=== PATIENT | male | born 1985 | race Caucasian/White ===

== ENCOUNTER 2020-02-16 11:17 | Emergency (ER) | payer OTHER ==
[~2020-02-16] VITALS: Ht 195.6 cm; Wt 117.9 kg
--- OUTSIDE RECORDS SUMMARY | ~2020-02-16 | XMS | Encounter Summary ---
Demographics + + + | Address | [address] | | | [place] [address] | + + + | Home Phone | | + + + | Preferred Language | Unknown | + + + | Marital Status | Unknown | + + + | Mormon Affiliation | Unknown | + + + | Race | Unknown | + + + | Ethnic Group | Other Race | + + + Author + + + | Organization | Unknown | + + + | Address | Unknown | + + + | Phone | Unavailable | + + + Care Team Providers + +------+ + | Care In Home Tutor Name | Role | Phone | + +------+ + PCP | Unavailable | + +------+ + Encounter Details +--------+ + + + + | Date | Type | Department | Care Team | Description | +--------+ + + + + | 09/12/ | Results | | Other, Faculty | | | 2000 | Only | | [phone] | | +--------+ + + + + Social History + +-------+ +--------+------+ | Tobacco Use | Types | Packs/Day | Years | Date | | | | | Used | | + +-------+ +--------+------+ | Never Assessed | | | | | + +-------+ +--------+------+ + + + | Sex Assigned at | Date Recorded | | | | + + + | Not on file | | + + + documented as of this encounter Plan of Treatment Not on filedocumented as of this encounter Procedures + +--------+ + + + | Procedure Name | Priori | Date/Time | Associated Diagnosis | Comments | | | ty | | | | + +--------+ + + + | DERMATOPATHOLOGY(WET | Routin | 09/12/2000 | | Results for this | | [facility]) | e | | | procedure are in the | | | | | | results section. | + +--------+ + + + documented in this encounter Results DERMATOPATHOLOGY(WET [facility]) (09/12/2000) + + + + + + | Component | Value | Ref Range | Performed | Pathologist | | | | | At | Signature | + + + + + + | DERMATOPATH | SOURCE OF SPECIMEN: | | | | | OLOGY(WET | FIRST TISSUE LEVEL IV | | | | | MNT) | [address] CLINICAL | | | | | | DESCRIPTION:Excision, | | | | | | lt. posterior medial | | | | | | shoulder; dome shape, | | | | | | plaque; IDN vshamartoma. | | | | | | GROSS DESCRIPTION:Left | | | | | | posterior medial | | | | | | shoulder, lobulated | | | | | | surfaced, ellipse, 3.0 x | | | | | | 1.2 x0.7 cm, inked, | | | | | | eleven segments, two | | | | | | cassettes. MICROSCOPIC | | | | | | DESCRIPTION:There is | | | | | | papillated epidermal | | | | | | hyperplasia with an | | | | | | increased number | | | | | | ofsebaceous glands, some | | | | | | of them opening | | | | | | directly into | | | | | | infundibulums. 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 | | | | | | There is no evidence | | | | | | of nevus. | | | | | | [id number] | | | | | | Diagnostician: Declan | | | | | | Peri Nava Jr., | | | | | | RaymundoPathologistElectroni | | | | | | phillip Signed | | | | | | 09/19/2000Comment: | | | | | | SOURCE OF SPECIMEN: | | | | | | FIRST TISSUE LEVEL IV | | | | | | [id number] | | | | + + + + + + + + | Specimen | + + | | + + + + + | Narrative | Performed At | + + + | Ordered cindi Watkins | | + + + + + + + + | Performing | Address | City/State/Zipcode | Phone Number | | Organization | | | | + + + + + | [facility] | [id number] | [place] [address] | | | DERMATOPATHOLOGY | [address] | | | + + + + + documented in this encounter Visit Diagnoses Not on filedocumented in this encounter"
--- OUTSIDE RECORDS SUMMARY | ~2020-02-16 | XMS | Clinical Summary ---
Demographics + + + | Address | [address] | | | [place] [address] | + + + | Home Phone | | + + + | Preferred Language | Unknown | + + + | Marital Status | Unknown | + + + | Congregational Affiliation | Unknown | + + + | Race | Unknown | + + + | Ethnic Group | Other Race | + + + Author + + + | Organization | Unknown | + + + | Address | Unknown | + + + | Phone | Unavailable | + + + Care Team Providers + +------+ + | Care Retail Analytics Manager Name | Role | Phone | + +------+ + PCP | Unavailable | + +------+ + Source Comments [facility] is fully live on both [facility] and [facility] InPatient.[facility] Allergies Not on File Medications Not on file Active Problems Not on file Social History + +-------+ +--------+------+ | Tobacco [...] on file | | + + + Last Filed Vital Signs Not on file Plan of Treatment + + +-------+ + | Health Maintenance | Due Date | Last | Comments | | | | Done | | + + +-------+ + | Influenza (Flu) | | | | | vaccination (#1) | 0 | | | + + +-------+ + | Pneumococcal | Aged Out | | No longer eligible based on patient's age | | vaccination | | | to complete this topic | + + +-------+ + Results Not on filefrom Last 3 Months"
--- OUTSIDE RECORDS SUMMARY | 2020-02-16 11:22 | XMS ---
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 Alber has no Care Guidelines for this patient. Rupesh VISIT COUNT (12 MO.) [address] TOTAL 2 NOTE: Visits indicate total known visits. ED/C VISIT TRACKING (12 MO.) 02/16/2020 11:18 [facility] [facility] [place] TYPE: Emergency COMPLAINT: - SOB,BACK PAIN 02/14/2020 20:18 [facility] [place] TYPE: Emergency DIAGNOSES: - Contusion of right front wall of thorax, initial encounter - Urinary tract infection, site not specified - SHORTNESS OF BREATH - SHORTNESS OF BREATH OJEAN INPATIENT VISIT TRACKING (12 MO.) No inpatient visits to display in this time frame [id number]
[2020-02-16] MEDS ORDERED: DIAZEPAM5 MG PO (14:11)
== END 2020-02-16 14:55 | disposition home or self-care (01) ==
LOC: ED 11:17
DX: S30.1XXA Contusion of abdominal wall, initial encounter (principal); M62.838 Other muscle spasm; F17.200 Nicotine dependence, unspecified, uncomplicated; W22.8XXA Striking against or struck by other objects, initial encounter
CPT/HCPCS: 71260; 74177; 80053; 85025; 99284-25; J1170; J1885; J2060; J2405; Q9967

== ENCOUNTER 2021-09-26 09:53 | Emergency (ER) | payer OTHER ==
[~2021-09-26] VITALS: Ht 195.6 cm; Wt 99.8 kg
[~2021-09-26 09:53] MED LIST: DIAZEPAM5 MG PO
[2021-09-26] MEDS ORDERED: METHOCARBAMOL750 MG PO (14:05)
== END 2021-09-26 14:21 | disposition home or self-care (01) ==
LOC: ED 09:53
DX: R10.9 Unspecified abdominal pain (principal); F17.200 Nicotine dependence, unspecified, uncomplicated
CPT/HCPCS: 36415; 74176; 80053; 81001; 85025; 96374; 96375; 96376; 99284-25; J1170; J1885; J2060; J2405; J7030